=== PATIENT | female | born 1970 | race Caucasian/White ===

== ENCOUNTER 2018-12-03 20:24 | Inpatient (IN) | payer OTHER ==
[~2018-12-03] VITALS: Ht 172.7 cm; Wt 90.9 kg
[2018-12-03] MEDS ORDERED: OMNICEF (20:29)
--- NOTE | 2018-12-03 20:31 | NUR ---
YESTERDAY VISIT ALSO REVEAL STONES L AND R KIDNEY
--- NOTE | 2018-12-03 20:36 | NUR ---
PT AMBULATES FROM TRIAGE TO RESTROOM WITH STEADY GAIT.
--- NOTE | 2018-12-03 21:21 | NUR ---
PT RESTING IN GOWN IN [facility]. ERP AT BS. IV ACCESS ESTABLISHED AND LABS DRAWN. PT VERBALIZES UNDERSTANDING OF ER PROCESS AND POC.
[2018-12-03] MEDS ORDERED: ONDANSETRON 2MG/ML, 2ML IVPush ONE (21:30)
[2018-12-03] MEDS ORDERED: PROMETHAZINE 25 MG/ML, 1ML IM ONE (21:30)
[2018-12-03] MEDS ORDERED: MORPHINE SULFATE 4 MG/ML, 1ML IVPush PRN (21:30)
[2018-12-03] MEDS ORDERED: CIPROFLOXACIN/PMX 400MG/200ML 200 ML IV ONE (21:30)
[2018-12-03] MEDS ORDERED: SODIUM CHLORIDE FLUSH 10ML SYR IVF ONE (21:30)
[2018-12-03] MEDS ORDERED: SODIUM CHLORIDE 0.9% 1,000ML IVBOLUS ONE (21:30)
[2018-12-03] MEDS ORDERED: ACETAMINOPHEN 500 MG TABLET PO ONE (21:30)
[2018-12-03] MEDS ORDERED: KETOROLAC 30 MG/1 ML IVPush ONE (21:30)
[2018-12-03] MEDS ORDERED: ONDANSETRON 2MG/ML, 2ML ONE (21:33)
[2018-12-03] MEDS ORDERED: PROMETHAZINE 25 MG/ML, 1ML ONE (21:33)
[2018-12-03] MEDS ORDERED: KETOROLAC 30 MG/1 ML ONE (21:33)
[2018-12-03] MEDS ORDERED: MORPHINE SULFATE 4 MG/ML, 1ML ONE (21:33)
[2018-12-03] MEDS ORDERED: ACETAMINOPHEN 500 MG TABLET ONE (21:41)
--- NOTE | 2018-12-03 21:45 | NUR ---
PT MEDICATED PER SEP. ADMITTING PHYSICIAN AT BS WITH PT.
[2018-12-03 21:55] LABS: MEAN CORPUSCULAR HEMOGLOBIN 27.6 pg (27.0-34.8); MEAN CORPUSCULAR HGB CONC 33.2 g/dL (32.4-35.8); MEAN CORPUSCULAR VOLUME 83.2 fL (80-100); MEAN PLATELET VOLUME 8.3 fL (7.4-10.4); PLATELET COUNT 175 x10^3/uL (130-400); RED BLOOD COUNT 4.95 x10^6/uL (3.82-5.3); RED CELL DISTRIBUTION WIDTH 15.7 % (9.6-15.2)
--- NOTE | 2018-12-03 21:57 | NUR ---
REPORT OF PT TO YURI AVILEZ. ALL QUESTIONS ANSWERED. PT SENT TO FLOOR WITH ANTIBIOTICS, JANI TO [facility].
[2018-12-03] MEDS ORDERED: CIPROFLOXACIN/PMX 400MG/200ML 200 ML ONE (21:59)
[2018-12-03 22:01] LABS: MD YES
[2018-12-03 22:03] LABS: ALANINE AMINOTRANSFERASE 45 U/L (12-78); ALBUMIN 3.9 g/dL (3.4-5.0); ANION GAP 14 mmol/L (5-15); CALCIUM 9.5 mg/dL (8.5-10.1); CHLORIDE 95 mmol/L (98-107); CREATININE 1.57 mg/dL (0.55-1.02)
[2018-12-03 22:05] LABS: ALKALINE PHOSPHATASE 55 U/L (45-117); BILIRUBIN,TOTAL 2.1 mg/dL (0.2-1.0); TOTAL PROTEIN 9.2 g/dL (6.4-8.2)
[2018-12-03 22:06] LABS: <PLATELET ESTIMATE> ADEQUATE; <RBC MORPHOLOGY> NORMAL; BAND#(MANUAL) 1.41 x10^3/uL; BANDS%(MANUAL) 11 % (0-7); LYMPHS% (MANUAL) 7 % (22-44); METAMYELOCYTES# (MANUAL) 0.13 x10^3/uL (0-0); METAMYELOCYTES% (MANUAL) 1 % (0-1); MONOS#(MANUAL) 0.64 x10^3/uL (0.3-2.7); MONOS% (MANUAL) 5 % (2-9); SEG#(MANUAL) 9.73 x10^3/uL (1.8-6.8); SEGS% (MANUAL) 76 % (42-75)
[2018-12-03 22:07] LABS: <PLT MORPHOLOGY> NORMAL PLT MORPH
[2018-12-03 22:13] VITALS: BP 110/72
[2018-12-03] MEDS ORDERED: POLYETHYLENE GLYCOL 17 GM PACKET PO PRN (22:30)
[2018-12-03] MEDS ORDERED: morphine SULFATE 10 MG/ML, 1ML IVPush PRN (22:30)
[2018-12-03] MEDS ORDERED: ONDANSETRON ODT 4 MG PO PRN (22:30)
[2018-12-03] MEDS ORDERED: hydrALAzine 20 MG/ML, 1ML IVPush PRN (22:30)
[2018-12-03] MEDS ORDERED: ONDANSETRON 2MG/ML, 2ML IVPush PRN (22:30)
[2018-12-03] MEDS ORDERED: ENALAPRILAT 1.25 MG/ML, 2ML IVPush PRN (22:30)
[2018-12-03] MEDS: CIPROFLOXACIN/PMX 400MG/200ML 200 ML IV SCH (23:23)
[2018-12-03] MEDS: NS + 20MEQ KCL 1,000 ML IV SCH (23:24)
[2018-12-03] MEDS: HEPARIN 5,000 UNITS/ML, 1ML SQ SCH (23:24)
[2018-12-03 23:58] LABS: HEMOGLOBIN A1C 6.1 % (4.2-6.3)
[2018-12-04 01:28] VITALS: BP 103/51
[2018-12-04 01:39] LABS: BASOPHILS # (AUTO) 0.01 x10^3/uL (0-0.1); BASOPHILS % (AUTO) 0 % (0-1); EOSINOPHILS # (AUTO) 0.02 x10^3/uL (0-0.4); EOSINOPHILS % (AUTO) 0 % (1-7); LYMPHOCYTES # (AUTO) 0.91 x10^3/uL (1-3.4); LYMPHOCYTES % (AUTO) 8 % (22-44); MD NO; MEAN CORPUSCULAR HEMOGLOBIN 27.6 pg (27.0-34.8); MEAN CORPUSCULAR HGB CONC 33.1 g/dL (32.4-35.8); MEAN CORPUSCULAR VOLUME 83.4 fL (80-100); MEAN PLATELET VOLUME 7.9 fL (7.4-10.4); MONOCYTES # (AUTO) 0.67 x10^3/uL (0.2-0.8); MONOCYTES % (AUTO) 6 % (2-9); NEUTROPHILS # (AUTO) 9.93 x10^3/uL (1.8-6.8); NEUTROPHILS % (AUTO) 86 % (42-75); PLATELET COUNT 160 x10^3/uL (130-400); RED BLOOD COUNT 4.21 x10^6/uL (3.82-5.3); RED CELL DISTRIBUTION WIDTH 15.3 % (9.6-15.2)
[2018-12-04 01:41] LABS: ALANINE AMINOTRANSFERASE 35 U/L (12-78); ANION GAP 13 mmol/L (5-15); CALCIUM 8.2 mg/dL (8.5-10.1); CHLORIDE 98 mmol/L (98-107); CREATININE 1.57 mg/dL (0.55-1.02)
[2018-12-04 01:44] LABS: ALKALINE PHOSPHATASE 41 U/L (45-117); BILIRUBIN,TOTAL 1.2 mg/dL (0.2-1.0); TOTAL PROTEIN 7.5 g/dL (6.4-8.2)
[2018-12-04] MEDS ORDERED: POTASSIUM CHLORIDE 40 MEQ in SODIUM CHLORIDE 0.9% 500 ML IV ONE (06:30)
[2018-12-04 06:42] VITALS: BP_SYST 109; BP_SYST 157; BP_DIAS 70; BP_DIAS 80
[2018-12-04] MEDS: ACETAMINOPHEN 325 MG TABLET PO PRN ×3 (08:48→22:01)
[2018-12-04] MEDS: SENNA/DOCUSATE TABLET PO SCH ×2 (09:00→09:43)
[2018-12-04] MEDS ORDERED: PROCHLORPERAZINE 5 MG TABLET PO PRN (09:30)
[2018-12-04] MEDS: NS + 20MEQ KCL 1,000 ML IV SCH ×2 (09:39→16:00)
[2018-12-04] MEDS: HEPARIN 5,000 UNITS/ML, 1ML SQ SCH ×2 (09:39→16:11)
[2018-12-04] MEDS: CIPROFLOXACIN/PMX 400MG/200ML 200 ML IV SCH (12:27)
[2018-12-04 13:38] LABS: ANION GAP 9 mmol/L (5-15); CALCIUM 8.6 mg/dL (8.5-10.1); CHLORIDE 101 mmol/L (98-107); CREATININE 1.16 mg/dL (0.55-1.02)
[2018-12-04 14:52] VITALS: BP 105/69
[2018-12-04 16:28] LABS: MICROSCOPIC INDICATED
[2018-12-04 16:29] LABS: CULTURE INDICATED? YES
[2018-12-04 19:22] VITALS: BP 109/70
[2018-12-04] MEDS ORDERED: CIPROFLOXACIN/PMX 400MG/200ML 200 ML IV SCH (20:00)
[2018-12-04 22:32] VITALS: BP 103/62
[2018-12-05] MEDS: HEPARIN 5,000 UNITS/ML, 1ML SQ SCH ×3 (00:03→16:52)
[2018-12-05] MEDS: CIPROFLOXACIN/PMX 400MG/200ML 200 ML IV SCH ×2 (00:03→13:22)
[2018-12-05] MEDS: MEROPENEM 1 GM in SODIUM CHLORIDE 0.9% 100 ML IV SCH ×3 (01:21→16:53)
[2018-12-05 01:28] VITALS: BP 118/72
[2018-12-05] MEDS: NS + 20MEQ KCL 1,000 ML IV SCH ×2 (05:43→20:33)
[2018-12-05] MEDS: ACETAMINOPHEN 325 MG TABLET PO PRN (05:43)
[2018-12-05 05:54] LABS: BASOPHILS # (AUTO) 0.02 x10^3/uL (0-0.1); BASOPHILS % (AUTO) 0 % (0-1); EOSINOPHILS # (AUTO) 0.06 x10^3/uL (0-0.4); EOSINOPHILS % (AUTO) 1 % (1-7); LYMPHOCYTES # (AUTO) 1.53 x10^3/uL (1-3.4); LYMPHOCYTES % (AUTO) 22 % (22-44); MD NO; MEAN CORPUSCULAR HEMOGLOBIN 27.1 pg (27.0-34.8); MEAN CORPUSCULAR HGB CONC 32.4 g/dL (32.4-35.8); MEAN CORPUSCULAR VOLUME 83.7 fL (80-100); MEAN PLATELET VOLUME 7.8 fL (7.4-10.4); MONOCYTES # (AUTO) 0.63 x10^3/uL (0.2-0.8); MONOCYTES % (AUTO) 9 % (2-9); NEUTROPHILS # (AUTO) 4.59 x10^3/uL (1.8-6.8); NEUTROPHILS % (AUTO) 67 % (42-75); PLATELET COUNT 166 x10^3/uL (130-400); RED BLOOD COUNT 3.99 x10^6/uL (3.82-5.3); RED CELL DISTRIBUTION WIDTH 15.5 % (9.6-15.2)
[2018-12-05 06:01] LABS: ANION GAP 6 mmol/L (5-15); CALCIUM 8.4 mg/dL (8.5-10.1); CHLORIDE 105 mmol/L (98-107); CREATININE 0.73 mg/dL (0.55-1.02)
[2018-12-05 07:36] VITALS: BP 102/64
[2018-12-05 12:29] VITALS: BP 106/72
[2018-12-05 19:06] VITALS: BP 108/73
[2018-12-06] MEDS: HEPARIN 5,000 UNITS/ML, 1ML SQ SCH ×2 (00:05→09:02)
[2018-12-06] MEDS: CIPROFLOXACIN/PMX 400MG/200ML 200 ML IV SCH (00:05)
[2018-12-06] MEDS: MEROPENEM 1 GM in SODIUM CHLORIDE 0.9% 100 ML IV SCH ×2 (01:18→09:02)
[2018-12-06 01:29] VITALS: BP 95/62
[2018-12-06 05:25] LABS: BASOPHILS # (AUTO) 0.02 x10^3/uL (0-0.1); BASOPHILS % (AUTO) 0 % (0-1); EOSINOPHILS # (AUTO) 0.16 x10^3/uL (0-0.4); EOSINOPHILS % (AUTO) 3 % (1-7); LYMPHOCYTES # (AUTO) 1.54 x10^3/uL (1-3.4); LYMPHOCYTES % (AUTO) 29 % (22-44); MD NO; MEAN CORPUSCULAR HEMOGLOBIN 27.6 pg (27.0-34.8); MEAN CORPUSCULAR HGB CONC 32.9 g/dL (32.4-35.8); MEAN PLATELET VOLUME 7.4 fL (7.4-10.4); MONOCYTES # (AUTO) 0.49 x10^3/uL (0.2-0.8); MONOCYTES % (AUTO) 9 % (2-9); NEUTROPHILS # (AUTO) 3.05 x10^3/uL (1.8-6.8); NEUTROPHILS % (AUTO) 58 % (42-75); PLATELET COUNT 204 x10^3/uL (130-400); RED BLOOD COUNT 3.86 x10^6/uL (3.82-5.3); RED CELL DISTRIBUTION WIDTH 15.3 % (9.6-15.2)
[2018-12-06 05:29] LABS: ANION GAP 7 mmol/L (5-15); CALCIUM 8.3 mg/dL (8.5-10.1); CHLORIDE 107 mmol/L (98-107)
[2018-12-06] MEDS: NS + 20MEQ KCL 1,000 ML IV SCH (05:45)
[2018-12-06 07:36] VITALS: BP 94/63
[2018-12-06] MEDS: SENNA/DOCUSATE TABLET PO SCH (09:02)
[2018-12-06] MEDS ORDERED: CIPR500T8 PO (10:51)
== END 2018-12-06 12:56 | disposition home or self-care (01) | DRG 871 ==
LOC: ED 21:25 → EDIP 21:26 → 3NE 22:34
PROVIDERS: ADMIT Family Medicine; ATTEND Family Medicine
DX: A41.9 Sepsis, unspecified organism (principal); N17.0 Acute kidney failure with tubular necrosis; E44.1 Mild protein-calorie malnutrition; E87.1 Hypo-osmolality and hyponatremia; K51.90 Ulcerative colitis, unspecified, without complications; N10 Acute pyelonephritis; E66.9 Obesity, unspecified; E86.0 Dehydration; E87.6 Hypokalemia; E87.8 Other disorders of electrolyte and fluid balance, not elsewhere classified; N20.0 Calculus of kidney; N30.90 Cystitis, unspecified without hematuria; R65.20 Severe sepsis without septic shock; Z68.30 Body mass index [BMI] 30.0-30.9, adult; Z87.442 Personal history of urinary calculi; Z88.1 Allergy status to other antibiotic agents; Z90.49 Acquired absence of other specified parts of digestive tract; Z93.2 Ileostomy status; Z93.3 Colostomy status
CPT/HCPCS: 36415; 80048; 80053; 81001; 83036; 83605; 84145; 85025; 87040; 87086; 96372; 96374; 96375; 99285; G0378; J0744; J1644; J1885; J2185; J2405; J2550; J3480; Q0162; J2270; J7030; J7040